=== PATIENT | female | born 1970 | race Caucasian/White ===

== ENCOUNTER 2019-11-18 15:34 | Inpatient (IN) ==
[2019-11-18 16:13] LABS: Bilirubin,Urine Negative (Negative); Blood,Urine Large (Negative); Clarity,Urine Cloudy (Clear); Color,Urine Yellow (Yellow); Glucose,Urine (UA) Normal (Normal); Ketones,Urine Negative (Negative); Leukocyte Esterase,Urine Negative (Negative); Nitrite,Urine Negative (Negative); Protein,Urine Negative (Neg-Trace); Specific Gravity,Urine 1.019 (1.010-1.025); Urobilinogen,Urine Normal (Normal)
[2019-11-18 16:15] LABS: Bacteria,Urine None Seen per hpf (None-Few); Hyaline Casts,Urine Few per lpf (None-Few); RBC,Urine 50-100 per hpf (0-3); Squamous Epithelial Cell,Urine Many per lpf (None-Few)
[2019-11-18 16:32] LABS: Amphetamine Screen,Urine Negative ng/mL (Cutoff=1000); Barbiturate Screen,Urine Negative ng/mL (Cutoff=200); Benzodiazepines Screen,Urine Negative ng/mL (Cutoff=200); Cannabinoid Screen,Urine Negative ng/mL (Cutoff = 50); Cocaine Screen,Urine Positive ng/mL (Cutoff= 300); Opiate Screen,Urine Positive ng/mL (Cutoff=300); Phencyclidine Screen,Urine Negative ng/mL (Cutoff=25)
[2019-11-18 16:42] LABS: Basophils % 0.3 %; Eosinophils # 0.1 K/mcL (0.0-0.6); Hematocrit 38.1 % (35.3-44.9); Hemoglobin 12.7 g/dL (11.5-15.4); Immature Granulocytes % 0.5 % (0-4); Lymphocytes # 1.7 K/mcL (0.6-4.6); Lymphocytes % 20.9 %; Mean Corpuscular HGB Conc 33.3 g/dL (31.6-35.5); Mean Corpuscular Hemoglobin 33.4 pg (28.0-33.3); Mean Corpuscular Volume 100.3 fL (83.0-100.0); Monocytes # 0.4 K/mcL (0.0-1.3); Monocytes % 5.5 %; Neutrophils # 5.7 K/mcL (1.6-8.9); Platelet Count 313 K/mcL (140-400); Red Cell Distribution Width 12.6 % (11.5-14.5); Segmented Neutrophils % 71.8 %
[2019-11-18 16:52] LABS: Acetaminophen < 10 mcg/mL (10-20); BUN/Creatinine Ratio 15 (6-26); Blood Urea Nitrogen 11 mg/dL (6-20); Calcium 8.8 mg/dL (8.6-10.3); Carbon Dioxide 28 mEq/L (23-29); Chloride 105 mEq/L (98-107); Ethanol < 10 mg/dL (Less than 10); Glucose 120 mg/dL (70-105); Osmolality,Calculated 287 (280-300); Potassium 4.1 mEq/L (3.5-5.1); Salicylate < 2.5 mg/dL (15.0-30.0); Sodium 138 mEq/L (136-145); eGFR For African Americans > 60 (> 60); eGFR For Non-African Americans > 60 (> 60)
[2019-11-18] MEDS ORDERED: Acetaminophen 325 MG TABLET PO PRN (19:48)
[2019-11-18] MEDS ORDERED: Haloperidol Lactate 5 MG/ML VIAL IM PRN (19:48)
[2019-11-18] MEDS ORDERED: *HR* LORazepam 1 MG TABLET PO PRN (19:48)
[2019-11-18] MEDS ORDERED: MOM Conc 10 ML UD.LIQ PO PRN (19:48)
[2019-11-18] MEDS ORDERED: *HR* LORazepam 2 MG/ML VIAL IM PRN (19:48)
[2019-11-18] MEDS ORDERED: Mag Hydrox/Al Hydrox/Simeth 30 ML UDC PO PRN (19:48)
[2019-11-18] MEDS ORDERED: Nicotine 2 MG GUM BC PRN (20:47)
[2019-11-18] MEDS: hydrOXYzine pamoate 25 MG CAPSULE PO PRN (21:28)
[2019-11-18] MEDS: traZODone 50 MG TABLET PO PRN (21:28)
[2019-11-18] MEDS: Ibuprofen 400 MG TABLET PO PRN (21:28)
[2019-11-19] MEDS: Nicotine 21 MG PATCH.TD24 TD SCH (10:46)
[2019-11-19] MEDS: Gabapentin 100 MG CAPSULE PO SCH (20:40)
[2019-11-19] MEDS: lamoTRIgine 25 MG TABLET PO SCH (20:40)
[2019-11-19] MEDS: Ibuprofen 400 MG TABLET PO PRN (20:40)
[2019-11-19] MEDS: traZODone 50 MG TABLET PO SCH (20:40)
[2019-11-19] MEDS: traZODone 50 MG TABLET PO PRN (22:28)
[2019-11-19] MEDS: hydrOXYzine pamoate 25 MG CAPSULE PO PRN (22:28)
[2019-11-20] MEDS: Gabapentin 100 MG CAPSULE PO SCH ×3 (09:11→21:52)
[2019-11-20] MEDS: Nicotine 21 MG PATCH.TD24 TD SCH (09:12)
[2019-11-20] MEDS: Ibuprofen 400 MG TABLET PO PRN ×2 (09:13→21:51)
[2019-11-20] MEDS: traZODone 50 MG TABLET PO SCH (21:52)
[2019-11-20] MEDS: lamoTRIgine 25 MG TABLET PO SCH (21:52)
[2019-11-20] MEDS: hydrOXYzine pamoate 25 MG CAPSULE PO PRN (22:49)
[2019-11-21] MEDS: Gabapentin 100 MG CAPSULE PO SCH ×3 (09:47→21:47)
[2019-11-21] MEDS: Nicotine 21 MG PATCH.TD24 TD SCH (09:47)
[2019-11-21] MEDS: Ibuprofen 400 MG TABLET PO PRN (11:35)
[2019-11-21] MEDS: Ibuprofen 400 MG TABLET PO SCH ×2 (14:46→21:46)
[2019-11-21] MEDS ORDERED: traZODone 50 MG TABLET PO SCH (21:00)
[2019-11-21] MEDS: hydrOXYzine pamoate 25 MG CAPSULE PO PRN (21:48)
[2019-11-21] MEDS: lamoTRIgine 25 MG TABLET PO SCH (21:48)
[2019-11-21] MEDS: traZODone 50 MG TABLET PO PRN (21:48)
[2019-11-22] MEDS: Gabapentin 100 MG CAPSULE PO SCH (08:37)
[2019-11-22] MEDS: Ibuprofen 400 MG TABLET PO SCH (08:38)
[2019-11-22] MEDS: lamoTRIgine 25 MG TABLET PO SCH (08:38)
[2019-11-22] MEDS: Nicotine 21 MG PATCH.TD24 TD SCH (09:06)
[2019-11-22 09:07] VITALS: BP 143/91
[2019-11-22] MEDS ORDERED: Tiotropium 18 MCG inhalation IH SCH (10:00)
== END 2019-11-22 12:15 | disposition home or self-care (01) | DRG 753 ==
LOC: EMEROOARM 15:34 → 1ANU 19:32
PROVIDERS: ADMIT Psychiatry & Neurology Forensic Psychiatry; ATTEND Psychiatry & Neurology Forensic Psychiatry

== ENCOUNTER 2022-01-18 09:18 | Inpatient (IN) ==
[2022-01-18] MEDS ORDERED: Ondansetron 4 MG/2 ML VIAL ONE (09:50)
[2022-01-18 10:22] LABS: Basophils % 0.5 %; Eosinophils # 0.1 K/mcL (0.0-0.6); Eosinophils % 1.5 %; Hematocrit 45.9 % (35.3-44.9); Immature Granulocytes % 0.7 % (0-4); Lymphocytes # 1.9 K/mcL (0.6-4.6); Lymphocytes % 25.6 %; Mean Corpuscular HGB Conc 30.5 g/dL (31.6-35.5); Mean Corpuscular Hemoglobin 32.4 pg (28.0-33.3); Mean Corpuscular Volume 106.3 fL (83.0-100.0); Mean Platelet Volume 9.5 fL (9.4-12.4); Monocytes # 0.5 K/mcL (0.0-1.3); Monocytes % 6.6 %; Neutrophils # 4.9 K/mcL (1.6-8.9); Platelet Count 231 K/mcL (140-400); Red Blood Count 4.32 M/mcL (3.82-4.97); Red Cell Distribution Width 12.8 % (11.5-14.5); Segmented Neutrophils % 65.1 %; White Blood Count 7.6 K/mcL (4.3-11.1)
[2022-01-18 11:23] LABS: Acetaminophen < 10 mcg/mL (10-20); Alanine Aminotransferase 11 Units/L (7-52); Albumin 4.2 g/dL (3.5-5.7); Albumin/Globulin Ratio 1.4 (1.1-2.2); Alkaline Phosphatase 62 Units/L (34-104); Aspartate Amino Transferase 26 Units/L (13-39); BUN/Creatinine Ratio 19 (6-26); Bilirubin,Direct 0.1 mg/dL (0.0-0.2); Bilirubin,Indirect 0.2 mg/dL (0.0-1.0); Bilirubin,Total 0.3 mg/dL (0.3-1.0); Blood Urea Nitrogen 16 mg/dL (6-20); Calcium 8.7 mg/dL (8.6-10.3); Carbon Dioxide 20 mEq/L (23-29); Chloride 104 mEq/L (98-107); Ethanol < 10 mg/dL (Less than 10); Globulin 2.9 g/dL (2.4-3.5); Glucose 132 mg/dL (70-105); Osmolality,Calculated 283 (280-300); Potassium 3.9 mEq/L (3.5-5.1); Salicylate < 2.5 mg/dL (15.0-30.0); Sodium 135 mEq/L (136-145); Total Protein 7.1 g/dL (6.4-8.9); eGFR For African Americans > 60 (> 60); eGFR For Non-African Americans > 60 (> 60)
[2022-01-18 13:10] LABS: Bilirubin,Urine Negative (Negative); Blood,Urine Small (Negative); Clarity,Urine Clear (Clear); Color,Urine Light-Yellow (Yellow); Glucose,Urine (UA) 30 mg/dL (Normal); Hyaline Casts,Urine Few per lpf (None Seen); Ketones,Urine Negative (Negative); Leukocyte Esterase,Urine Small (Negative); Mucus,Urine Few per lpf (None-Few); Nitrite,Urine Negative (Negative); PH,Urine 5.5 pH Units (5.0-8.0); Protein,Urine 30 mg/dL (Neg-Trace); RBC,Urine 0-3 per hpf (0-3); Specific Gravity,Urine 1.024 (1.010-1.025); Squamous Epithelial Cell,Urine Few per hpf (None-Few); Urobilinogen,Urine Normal (Normal)
[2022-01-18 13:41] LABS: Amphetamine Screen,Urine Positive ng/mL (Cutoff=1000); Barbiturate Screen,Urine Negative ng/mL (Cutoff=200); Benzodiazepines Screen,Urine Negative ng/mL (Cutoff=200); Cannabinoid Screen,Urine Negative ng/mL (Cutoff = 50); Cocaine Screen,Urine Positive ng/mL (Cutoff= 300); Opiate Screen,Urine Positive ng/mL (Cutoff=300); Phencyclidine Screen,Urine Negative ng/mL (Cutoff=25)
[2022-01-18] MEDS ORDERED: Ondansetron 4 MG/2 ML VIAL IVP PRN (14:39)
[2022-01-18] MEDS ORDERED: Naloxone 0.4 MG/ML INJ IVP PRN (14:39)
[2022-01-18] MEDS ORDERED: *HR* LORazepam 2 MG/ML VIAL IVP PRN (14:40)
[2022-01-18] MEDS ORDERED: Haloperidol Lactate 5 MG/ML VIAL IVP PRN (14:40)
[2022-01-18] MEDS ORDERED: 0.9 % Sodium Chloride 1,000 ML IVC SCH (14:45)
[2022-01-19] MEDS ORDERED: levoFLOXacin 750 MG/150 ML 750 MG/150 ML BAG IVPB ONE (03:04)
[2022-01-19] MEDS ORDERED: Ipratropium/Albuterol Neb 3 ML IH PRN (03:28)
[2022-01-19 03:29] LABS: Basophils % 0.3 %; Eosinophils % 0.3 %; Hematocrit 41.8 % (35.3-44.9); Hemoglobin 13.1 g/dL (11.5-15.4); Immature Granulocytes % 0.5 % (0-4); Lymphocytes # 1.9 K/mcL (0.6-4.6); Lymphocytes % 14.3 %; Mean Corpuscular HGB Conc 31.3 g/dL (31.6-35.5); Mean Corpuscular Hemoglobin 32.7 pg (28.0-33.3); Mean Corpuscular Volume 104.2 fL (83.0-100.0); Mean Platelet Volume 9.7 fL (9.4-12.4); Monocytes # 0.8 K/mcL (0.0-1.3); Platelet Count 290 K/mcL (140-400); Red Blood Count 4.01 M/mcL (3.82-4.97); Segmented Neutrophils % 78.6 %
[2022-01-19 03:30] LABS: Neutrophils # 10.5 K/mcL (1.6-8.9); White Blood Count 13.3 K/mcL (4.3-11.1)
[2022-01-19 03:44] LABS: BUN/Creatinine Ratio 24 (6-26); Blood Urea Nitrogen 18 mg/dL (6-20); Calcium 8.8 mg/dL (8.6-10.3); Carbon Dioxide 29 mEq/L (23-29); Chloride 104 mEq/L (98-107); Glucose 82 mg/dL (70-105); Osmolality,Calculated 289 (280-300); Potassium 4.1 mEq/L (3.5-5.1); Sodium 139 mEq/L (136-145); eGFR For African Americans > 60 (> 60); eGFR For Non-African Americans > 60 (> 60)
[2022-01-19 04:34] LABS: VBG HCO3 29 mEq/L (21-27); VBG PCO2 67 mmHg (41-51); VBG PH 7.25 pH Units (7.32-7.42); VBG PO2 188 mmHg (25-50)
[2022-01-19] MEDS: Piperacillin/Tazobactam 3.375 GM in 0.9 % Sodium Chloride Mini Bag 100 ML IVPB SCH ×3 (08:47→23:55)
[2022-01-19 15:39] LABS: Adenovirus Not Detected (Not Detect); Bordetella Pertussis Not Detected (Not Detect); Chlamydophila pneumoniae Not Detected (Not Detect); Coronavirus 229E Not Detected (Not Detect); Coronavirus HKU1 Not Detected (Not Detect); Coronavirus NL63 Not Detected (Not Detect); Coronavirus OC43 Not Detected (Not Detect); Human Metapneumovirus Not Detected (Not Detect); Human Rhinovirus/Enterovirus Not Detected (Not Detect); Influenza A Subtype 2009 H1 Not Detected (Not Detect); Influenza B Not Detected (Not Detect); Mycoplasma pneumoniae Not Detected (Not Detect); Parainfluenza Virus 1 Not Detected (Not Detect); Parainfluenza Virus 2 Not Detected (Not Detect); Parainfluenza Virus 3 Not Detected (Not Detect); Parainfluenza Virus 4 Not Detected (Not Detect); Respiratory Syncytial Virus Not Detected (Not Detect); SARS-CoV-2 Not Detected (Not Detect)
[2022-01-19] MEDS: MethylPREDNISolone 40 MG/ML VIAL IVP SCH ×2 (16:19→23:55)
[2022-01-19 23:30] LABS: ABG Base Excess 1 mEq/L (-2 to 3); ABG HCO3 30 mEq/L (21-27); ABG Oxygen Saturation 91 % (95-98); ABG PCO2 72 mmHg (35-45); ABG PH 7.24 pH Units (7.32-7.45); ABG PO2 74 mmHg (85-104); ABG TCO2 33 mEq/L (20-26); Blood Gas Modality BiLevel
[2022-01-20 06:04] LABS: Hematocrit 40.5 % (35.3-44.9); Hemoglobin 13.2 g/dL (11.5-15.4); Mean Corpuscular HGB Conc 32.6 g/dL (31.6-35.5); Mean Corpuscular Volume 101.3 fL (83.0-100.0); Mean Platelet Volume 10.7 fL (9.4-12.4); Platelet Count 266 K/mcL (140-400); White Blood Count 25.5 K/mcL (4.3-11.1)
[2022-01-20 06:15] LABS: VBG HCO3 29 mEq/L (21-27); VBG PCO2 50 mmHg (41-51); VBG PH 7.37 pH Units (7.32-7.42); VBG PO2 155 mmHg (25-50)
[2022-01-20 06:25] LABS: BUN/Creatinine Ratio 44 (6-26); Blood Urea Nitrogen 31 mg/dL (6-20); Calcium 9.7 mg/dL (8.6-10.3); Carbon Dioxide 28 mEq/L (23-29); Chloride 102 mEq/L (98-107); Glucose 148 mg/dL (70-105); Osmolality,Calculated 293 (280-300); Potassium 3.8 mEq/L (3.5-5.1); Sodium 137 mEq/L (136-145); eGFR For African Americans > 60 (> 60); eGFR For Non-African Americans > 60 (> 60)
[2022-01-20] MEDS: MethylPREDNISolone 40 MG/ML VIAL IVP SCH ×3 (08:33→23:37)
[2022-01-20] MEDS: Piperacillin/Tazobactam 3.375 GM in 0.9 % Sodium Chloride Mini Bag 100 ML IVPB SCH ×3 (08:34→23:37)
[2022-01-21 02:01] LABS: Basophils # 0.1 K/mcL (0.0-0.2); Basophils % 0.2 %; Hematocrit 38.7 % (35.3-44.9); Hemoglobin 12.9 g/dL (11.5-15.4); Immature Granulocytes % 0.8 % (0-4); Lymphocytes # 0.7 K/mcL (0.6-4.6); Lymphocytes % 3.1 %; Mean Corpuscular HGB Conc 33.3 g/dL (31.6-35.5); Mean Platelet Volume 10.2 fL (9.4-12.4); Monocytes # 0.6 K/mcL (0.0-1.3); Monocytes % 2.6 %; Neutrophils # 22.1 K/mcL (1.6-8.9); Platelet Count 241 K/mcL (140-400); Red Blood Count 3.91 M/mcL (3.82-4.97); Red Cell Distribution Width 12.9 % (11.5-14.5); Segmented Neutrophils % 93.3 %; White Blood Count 23.7 K/mcL (4.3-11.1)
[2022-01-21 02:28] LABS: Platelet Estimate Normal (Normal)
[2022-01-21] MEDS: Piperacillin/Tazobactam 3.375 GM in 0.9 % Sodium Chloride Mini Bag 100 ML IVPB SCH ×3 (08:22→23:55)
[2022-01-21] MEDS: MethylPREDNISolone 40 MG/ML VIAL IVP SCH ×3 (08:22→23:54)
[2022-01-21] MEDS ORDERED: Acetaminophen 325 MG TABLET PO ONE (20:41)
[2022-01-22] MEDS: MethylPREDNISolone 40 MG/ML VIAL IVP SCH (07:54)
[2022-01-22] MEDS: Piperacillin/Tazobactam 3.375 GM in 0.9 % Sodium Chloride Mini Bag 100 ML IVPB SCH (07:54)
[2022-01-22 10:26] VITALS: BP 151/86; PULSE 79; TEMP 97.8; O2SAT 93
== END 2022-01-22 15:01 | disposition home or self-care (01) | DRG 812 ==
LOC: 3BNU 09:18 → EMEROOARM 09:18 → 3BNU 16:14
PROVIDERS: ADMIT Hospitalist; ATTEND Hospitalist